=== PATIENT | male | born 1950 | race Caucasian/White ===

== ENCOUNTER → 2017-02-19 | Outpatient (CLI) | payer OTHER, MEDICARE ==
[~2017-02-19] VITALS: Ht 182.9 cm; Wt 97.5 kg
[~2017-02-19] MED LIST: ASPIR 8181 MG PO; GLUCOSAMINE CH1 EAC7 PO; IBUPROFEN 200200 M1 PO; NICOTINE LOZENGE PO; TESTOSTERONE60 GM TOP; TYLENOL325 MG PO; VITAMIN D1000 UNI1 PO
--- NOTE | ~2017-02-19 | P ---
[facility] [place] [address] PROCEDURE REPORT Name: SANJUANA TROY Room #: [facility] [id number] Admission: 02/19/17 Attend Phys: Sanjuana Jones MD Discharge: Date of : 52 Report #: [id number] THIS REPORT FOR: //name// CC: FAM unknown Sanjuana DOMINGUEZ DO BRIEF HISTORY: The patient is a 66-year-old male who has a history of multiple colon polyps, for high risk screening colonoscopy. His last colonoscopy was more than 3 years ago. PREOPERATIVE DIAGNOSIS: High risk screening colonoscopy with multiple colon polyps. POSTOPERATIVE DIAGNOSES: 1. Moderately severe diverticulosis coli. 2. Internal hemorrhoids. 3. Old tattoo escobar, up the rectum without evidence of residual polyps. SPECIMEN: None. ESTIMATED BLOOD LOSS: None. PROCEDURE: Colonoscopy to cecum and terminal ileum. FINDINGS: Prior to propofol sedation, the procedure of colonoscopy discussed with the patient as well as potential risks and its complications. He indicates he understands and desires to proceed. DESCRIPTION OF PROCEDURE: With the patient in left lateral decubitus position, digital examination was completed, which revealed no abnormalities. Subsequently, the [employer] video colonoscope was introduced in the rectum, advanced under direct vision to the cecum. Done with minimal difficulty. The cecum was identified by the ileocecal valve and the appendiceal orifice. I was able to visualize the distal segment of terminal ileum, which was inspected and noted to be unremarkable. At that point, the scope was slowly withdrawn and careful circumferential views were obtained. As we withdrew the scope, the prep was noted to be excellent. The mucosa was within normal limits, normal vascular pattern, normal light reflex. As we withdrew the scope, no neoplastic lesions were seen. No polyps were seen on today's examination. As we withdrew the scope through the colon, no additional abnormalities were seen until the upper rectum was reached. At that point, tattoo escobar were seen suggestive of a previous polypectomy site. The area was carefully examined and no residual polyps were seen. Scope withdrawn. The patient tolerated the procedure well. CONDITION OF THE PATIENT UPON DISCHARGE: Following procedure, the patient drowsy, aroused, conversant and will be discharged home when fully ambulatory. [address] [address] PROCEDURE REPORT Name: SANJUANA TROY Room #: REG [facility].#: [id number] Admission: 02/19/17 Attend Phys: Sanjuana Jones MD Discharge: Date of : 52 Report #: [id number] INSTRUCTIONS TO THE PATIENT AND FAMILY AT THE TIME OF DISCHARGE: The patient has a history of multiple colon polyps in the past, however, none were seen today. We will obtain old records for review to determine lifetime adenomas, polyp count. Have him return for followup colonoscopy in 3-5 years. He will otherwise return to care of Dr. Jreonimo Dominguez. Last colonoscopy was more than 3 years ago. Withdrawal time from the cecum was 13 minutes. <ELECTRONICALLY SIGNED> By: Sanjuana Joens MD 02/19/17 [id number] Sanjuana Jones MD /nt
== END | disposition home or self-care (01) ==
LOC: GI 07:18
DX: Z09 Encounter for follow-up examination after completed treatment for conditions other than malignant neoplasm (principal); K57.30 Diverticulosis of large intestine without perforation or abscess without bleeding; K64.8 Other hemorrhoids; Z87.891 Personal history of nicotine dependence; Z87.442 Personal history of urinary calculi; Z98.890 Other specified postprocedural states
CPT/HCPCS: 62110; 62900

== ENCOUNTER → 2020-03-27 | Outpatient (CLI) | payer OTHER, MEDICARE | LOC: SJCVC 11:25 | PROVIDERS: ATTEND Internal Medicine Cardiovascular Disease | DX: R93.1 Abnormal findings on diagnostic imaging of heart and coronary circulation (principal); E78.00 Pure hypercholesterolemia, unspecified; Z79.899 Other long term (current) drug therapy; Z87.891 Personal history of nicotine dependence ==

== ENCOUNTER → 2020-12-27 | Outpatient (CLI) | payer OTHER, MEDICARE | LOC: SJCVCIMAG 09:17 | PROVIDERS: ATTEND Internal Medicine Cardiovascular Disease | DX: R93.1 Abnormal findings on diagnostic imaging of heart and coronary circulation (principal); E78.5 Hyperlipidemia, unspecified ==